=== PATIENT | male | born 1965 | race Caucasian/White ===

== ENCOUNTER 2019-12-04 09:19 | Observation (INO) ==
[2019-12-04 10:36] LABS: Hematocrit 37.4 % (37.5-50.1); Hemoglobin 12.9 g/dL (12.9-16.9); Mean Corpuscular HGB Conc 34.5 g/dL (31.6-35.5); Mean Corpuscular Hemoglobin 32.6 pg (28.0-33.3); Mean Corpuscular Volume 94.4 fL (83.0-100.0); Mean Platelet Volume 9.5 fL (9.4-12.4); Platelet Count 194 K/mcL (140-400); Red Blood Count 3.96 M/mcL (4.19-5.50); Red Cell Distribution Width 12.5 % (11.5-14.5)
[2019-12-04 10:45] LABS: INR 0.9; Prothrombin Time 10.7 Seconds (9.4-12.1)
[2019-12-04 11:01] LABS: BUN/Creatinine Ratio 9 (6-26); Blood Urea Nitrogen 9 mg/dL (6-20); Calcium 9.1 mg/dL (8.6-10.3); Carbon Dioxide 23 mEq/L (23-29); Chloride 108 mEq/L (98-107); Glucose 113 mg/dL (70-105); Osmolality,Calculated 283 (280-300); Potassium 3.8 mEq/L (3.5-5.1); Sodium 137 mEq/L (136-145); Troponin I < 0.03 ng/mL (< 0.04); eGFR For African Americans > 60 (> 60); eGFR For Non-African Americans > 60 (> 60)
[2019-12-04] MEDS ORDERED: *HR* HYDROcodone/Acet 5/325 mg TABLET PO ONE (12:08)
[2019-12-04] MEDS ORDERED: Aspirin 81 MG TAB.CHEW PO STA (12:08)
[2019-12-04] MEDS: Nicotine 21 MG PATCH.TD24 TD SCH (16:03)
[2019-12-04] MEDS: *HR* OxyCODONE Immed Rel 5 MG TABLET PO PRN ×2 (16:03→22:04)
[2019-12-05] MEDS: *HR* OxyCODONE Immed Rel 5 MG TABLET PO PRN ×2 (04:29→12:21)
[2019-12-05 06:15] LABS: Alanine Aminotransferase 33 Units/L (7-52); Albumin 4.1 g/dL (3.5-5.7); Alkaline Phosphatase 92 Units/L (34-104); Aspartate Amino Transferase 17 Units/L (13-39); BUN/Creatinine Ratio 12 (6-26); Bilirubin,Total 0.5 mg/dL (0.3-1.0); Blood Urea Nitrogen 12 mg/dL (6-20); Calcium 8.9 mg/dL (8.6-10.3); Carbon Dioxide 22 mEq/L (23-29); Chloride 105 mEq/L (98-107); Chol/HDL Ratio 7.4 (0-4.9); Cholesterol 201 mg/dL (< 200); Globulin 2.1 g/dL (2.4-3.5); Glucose 180 mg/dL (70-105); HDL Cholesterol 27 mg/dL (40-59); LDL Cholesterol,Calculated 117 mg/dL (0-99); Osmolality,Calculated 288 (280-300); Potassium 3.7 mEq/L (3.5-5.1); Sodium 137 mEq/L (136-145); Total Protein 6.2 g/dL (6.4-8.9); Triglycerides 284 mg/dL (< 150); eGFR For African Americans > 60 (> 60); eGFR For Non-African Americans > 60 (> 60)
[2019-12-05] MEDS ORDERED: Naloxone 0.4 MG/ML INJ IVP PRN (07:16)
[2019-12-05 08:54] LABS: Estimated Average Glucose 160 mg/dl
[2019-12-05] MEDS: Nicotine 21 MG PATCH.TD24 TD SCH (12:21)
[2019-12-05 12:22] VITALS: BP 131/86
== END 2019-12-05 16:06 | disposition home or self-care (01) ==
LOC: 2ANU 09:19 → EMEROOARM 09:19 → SUATTDRO 13:23 → 2ANU 14:00
PROVIDERS: ADMIT Internal Medicine; ATTEND Internal Medicine